=== PATIENT | male | born 1995 | race Caucasian/White ===

== ENCOUNTER 2017-04-29 21:02 | Emergency (ER) | payer SELFPAY ==
[~2017-04-29] VITALS: Ht 167.6 cm; Wt 68.0 kg
[~2017-04-29 21:02] MED LIST: ACYC800T57 PO; PRED20TA PO
[2017-04-29 21:16] VITALS: Ht 167.6 cm; Wt 68.0 kg
[2017-04-29] MEDS ORDERED: IBUP-1542 PO (22:06)
[2017-04-29] MEDS ORDERED: SULF1TAB31 PO (22:06)
[2017-04-29] MEDS ORDERED: HYDR-906 PO (22:06)
[2017-04-29] MEDS ORDERED: CEPH-443 PO (22:06)
--- NOTE | 2017-04-29 23:02 | ERD ---
ER Documentation Chief Complaint Chief Complaint Lt leg pain s/p tattoo x 4 days HPI Patient is a 21-year-old male presenting to the emergency department with complaints of redness, swelling, and discharge and foul odor to his left calf constantly for the past 3 days where he received a tattoo. Pain is worse with ambulation. Symptoms are moderate in severity. Patient is taken no medication at home for relief of symptoms. He does report sweats, but denies any fevers or other symptoms at this time. ROS All systems reviewed and are negative except as per history of present illness. Medications Home Meds Active Scripts Ibuprofen* (Motrin*) 600 Mg Tab, 600 MG PO Q6, #30 TAB Prov:CHARLOTTE RAMÍREZ PA-C 04/29/17 Hydrocodone/Acetaminophen ([place]or 5-325 Tablet) 1 Each Tablet, 1 TAB PO Q6H Y for PAIN, #12 TAB Prov:CHARLOTTE RAMÍREZ PA-C 04/29/17 Sulfamethoxazole/Trimethoprim* (Bactrim Ds* Tablet) 1 Each Tablet, 1 TAB PO BID , #14 TAB Prov:CHARLOTTE RAMÍREZ PA-C 04/29/17 Cephalexin* (Keflex*) 500 Mg Capsule, 500 MG PO TID for 7 Days, #21 CAP Prov:CHARLOTTE RAMÍREZ PA-C 04/29/17 Acyclovir* (Zovirax*) 800 Mg Tablet, 800 MG PO QID for 7 Days, TAB Prov:HUSSEIN FRANCIS PA-C 05/26/16 Prednisone* (Prednisone*) 20 Mg Tab, 60 MG PO DAILY for 4 Days, TAB Prov:HUSSEIN FRANCIS PA-C 05/26/16 Allergies Allergies: Coded Allergies: No Known Drug Allergy (Verified Allergy, Mild, 04/29/17) PMhx/Soc Medical and Surgical Hx: pt denies Surgical Hx History of Surgery: No Hx Neurological Disorder: No Hx Respiratory Disorders: No Hx Cardiac Disorders: No Hx Miscellaneous Medical Probl: Yes (h[place]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 Head: Atraumatic Eyes: Normal Conjunctiva ENT: Normal External Ears, Nose and Mouth. Skin: There is soft tissue swelling noted to the left calf with associated folliculitis and small amount of foul-smelling discharge. There is no lymphatic streaking, there is no calf tenderness to palpation. Ext: No cyanosis, or edema Neur: Awake and alert Psych: Normal Mood and Affect Procedures/MDM 21-year-old male presents to the emergency department with complaints of discharge, swelling to his tattoo site on his left calf. History and physical examination is consistent with cellulitis. He is stable for discharge with a prescription for Keflex and Bactrim and pain medication. Low suspicion for deep tissue infection, deep venous thrombosis, complicated cellulitis, sepsis, or other emergent conditions. No evidence of life-threatening pathology at time of discharge. Pt/family in agreement with discharge plan/diagnosis. Pt/family advised to return immediately with any new or worsening symptoms. Follow-up with primary care physician within the next 1-2 days. Disclaimer: Inadvertent spelling and grammatical errors are likely due to EHR/ dictation software use and do not reflect on the overall quality of patient care. Also, please note that the electronic time recorded on this note does not necessarily reflect the actual time of the patient encounter. Departure Diagnosis: Primary Impression: Cellulitis Site of cellulitis: extremity Site of cellulitis of extremity: lower extremity Laterality: left Qualified Code: L03.116 - Cellulitis of left lower extremity Condition: Fair Patient Instructions: Cellulitis Referrals: [facility] YOU HAVE RECEIVED A MEDICAL SCREENING EXAM AND THE RESULTS INDICATE THAT YOU DO NOT HAVE A CONDITION THAT REQUIRES URGENT TREATMENT IN THE EMERGENCY DEPARTMENT. FURTHER EVALUATION AND TREATMENT OF YOUR CONDITION CAN WAIT UNTIL YOU ARE SEEN IN YOUR DOCTORS OFFICE WITHIN THE NEXT 1-2 DAYS. IT IS YOUR RESPONSIBILITY TO MAKE AN APPOINTMENT FOR FOLOW-UP CARE. IF YOU HAVE A PRIMARY DOCTOR --you should call your primary doctor and schedule an appointment IF YOU DO NOT HAVE A PRIMARY DOCTOR YOU CAN CALL OUR PHYSICIAN REFERRAL HOTLINE AT IF YOU CAN NOT AFFORD TO SEE A PHYSICIAN YOU CAN CHOSE FROM THE FOLLOWING [facility] [id number] [facility]. [facility] [address] [facility] [address] [facility] [address] [facility] [address] [facility]. [facility] [address] Additional Instructions: Return in 48 hours for wound recheck. Follow up with your PCP within the next 1 -3 days for a repeat evaluation. If you require a referral to a specialist, your Primary Care Provider may be able to provide this for you. In most patient cases, a referral is not required. If you have further questions regarding this matter, please ask your Primary Care Provider. Return the the emergency department immediately if symptoms worsen or change. If you have any questions regarding medications, ask your pharmacist or us before you leave. If any adverse reactions, occur while taking your medications, discontinue the treatment and return to the emergency department immediately. If any new or worsening symptoms, uncontrolled fevers, or other unexplained symptoms occur, return to the emergency department immediately. Take your medications as directed, and complete the entire course of treatment. CHARLOTTE RAMÍREZ PA-C Apr 29, 2017 23:02
== END 2017-04-29 22:45 | disposition home or self-care (01) ==
LOC: FTE 21:02
DX: L03.116 Cellulitis of left lower limb (principal)
CPT/HCPCS: 99284